=== PATIENT | male | born 1955 | race Caucasian/White ===

== ENCOUNTER 2020-09-24 17:54 | Inpatient (IN) | payer BC, MEDICARE ==
[~2020-09-24] VITALS: Ht 177.8 cm; Wt 98.7 kg
[2020-09-24] VITALS (70 sets, daily range): O2SAT 91–100
[~2020-09-24 17:54] MED LIST: ATORVASTATIN; ETOLDOLAC400 MG PO; INSULIN HUMALOG; INSULIN LANTUS; LIPITOR 40MG TA40 MG PO; LOTENSIN10 MG PO; NORCO 325 MG-7.1 TAB PO; PLAVIX 75MG TAB75 MG PO; WELCHOL 625MG625 MG PO; WELLBUTRIN SR150 M1 PO
[2020-09-24 18:33] LABS: HEMOGLOBIN 17.1 g/dl (13.5-18.0); MEAN CELL VOLUME 100 fl (80.0-100.0); MEAN CORPUSCULAR HEMOGLOBIN 32 pg (27.0-31.0); MEAN CORPUSCULAR HGB CONC 32 g/dl (33.0-37.0); MEAN PLATELET VOLUME 9.6 fl (7.4-10.4); PLATELET COUNT 525 K/mm3 (130-400); REDCELL DISTRIBUTION WIDTH-CV 12.6 % (11.5-14.5)
[2020-09-24 18:36] LABS: HEMATOCRIT 54.2 % (42.0-52.0)
[2020-09-24 18:40] LABS: ALBUMIN 5.4 gm/dL (3.5-5.0); BILIRUBIN,TOTAL 0.6 mg/dL (0.0-1.0); C-REACTIVE PROTEIN 0.9 mg/dL (0.0-0.9); CALCIUM 9.7 mg/dL (8.4-10.2); CREATININE, serum 1.65 (0.66-1.25); TOTAL PROTEIN 8.4 gm/dL (6.4-8.2)
[2020-09-24 18:43] LABS: POTASSIUM 6.1 mmol/L (3.4-5.0)
[2020-09-24 19:01] LABS: COLLECTION METHOD CLEAN CATCH
[2020-09-24 19:07] LABS: PH 5 (5-8); SQUAMOUS EPITHELIAL None Seen /hpf; URINE APPEARANCE Clear; URINE BACTERIA None Seen /hpf; URINE BILIRUBIN Negative (NEGATIVE); URINE BLOOD 1+ (NEGATIVE); URINE COLOR Straw; URINE GLUCOSE 3+ (NEGATIVE); URINE KETONE 2+ (NEGATIVE); URINE LEUKOCYTE ESTERASE Negative (NEGATIVE); URINE NITRATE Negative (NEGATIVE); URINE PROTEIN(semi-quant) 1+ (NEGATIVE); URINE RBC 0-2 /hpf; URINE UROBILINOGEN Negative (NEGATIVE)
[2020-09-24 19:19] LABS: BAND 1 % (0-10); HYPOCHROMIA 1+; LYMPHOCYTE 7 % (20.0-51.0); NEUTROPHILS 90 % (42.0-75.2); OVALOCYTES 1+; PLATELET ESTIMATE INCREASED (NORMAL)
[2020-09-24 19:32] LABS: ARTERIAL BLD GAS O2 SATURATION 97.5 % (92-100); ARTERIAL BLOOD GAS BASE EXCESS -26.8 (-2-2); ARTERIAL BLOOD GAS HCO3 3.6 meq/L (22-26); ARTERIAL BLOOD GAS PO2 115.8 mmHg (80-100); ARTERIAL BLOOD GAS pH 6.96 (7.35-7.45)
[2020-09-24 19:55] LABS: MAGNESIUM 2.7 mg/dL (1.6-2.3)
[2020-09-24 19:56] LABS: PHOSPHOROUS 11.4 mg/dL (2.5-4.5)
[2020-09-24] MEDS ORDERED: FARXIGA10 PO (20:13)
[2020-09-24] MEDS ORDERED: NOVOLOG FLEX100 U/ML SQ (20:15)
[2020-09-24] MEDS ORDERED: LEVEMIR100 U/ML SQ (20:15)
[2020-09-24] MEDS ORDERED: LOTENSIN20 MG PO (20:16)
[2020-09-24] MEDS ORDERED: NORVASC2.5 MG PO (20:16)
[2020-09-24] MEDS ORDERED: MOBIC15 MG PO (20:17)
[2020-09-24 20:51] LABS: BLOOD UREA NITROGEN 34 mg/dL (9-20); CHLORIDE 98 mmol/L (98-107); CREATININE, serum 1.62 (0.66-1.25); SODIUM 138 mmol/L (137-145)
[2020-09-24 21:00] LABS: GLUCOSE 495 mg/dL (74-106)
[2020-09-24 21:01] LABS: CARBON DIOXIDE < 5 mmol/L (22-30); POTASSIUM 5.8 mmol/L (3.4-5.0)
[2020-09-24 21:03] LABS: ANION GAP 0 mmol/L (7-16)
--- NOTE | 2020-09-24 21:48 | NUR ---
Pt arrived to ICU room 6 via cart at this time with ED nurse. Pt able to transfer from the cart to the ICU bed with standby assist. Pt oriented to room and call light system. Pt is sitting up in the bed and denies further needs. Call light within reach.
[2020-09-25] VITALS (660 sets, daily range): BP systolic 109–151; BP diastolic 45–87; PULSE 81–127; TEMP 98.4–99.2; O2SAT 82–100
[2020-09-25 00:52] LABS: CALCIUM 8.6 mg/dL (8.4-10.2); CREATININE, serum 1.36 (0.66-1.25)
[2020-09-25 00:57] LABS: POTASSIUM 5.8 mmol/L (3.4-5.0)
[2020-09-25 01:05] LABS: TROPONIN-I 6 HR POST INITIAL 0.062 ng/mL (0.000-0.034)
[2020-09-25 03:45] LABS: CALCIUM 8.7 mg/dL (8.4-10.2); CREATININE, serum 1.19 (0.66-1.25); POTASSIUM 4.7 mmol/L (3.4-5.0)
[2020-09-25 04:01] LABS: TROPONIN-I 0.32 ng/mL (0.000-0.035)
[2020-09-25 06:19] LABS: CALCIUM 8.5 mg/dL (8.4-10.2); CREATININE, serum 1.08 (0.66-1.25); POTASSIUM 4.4 mmol/L (3.4-5.0)
--- NOTE | 2020-09-25 07:00 | NUR ---
RECEIVED REPORT FROM GRACE DYKES. ASSUMED CARE OF PT AT THIS TIME.
[2020-09-25 07:58] LABS: CALCIUM 8.5 mg/dL (8.4-10.2); CREATININE, serum 0.99 (0.66-1.25); POTASSIUM 4.2 mmol/L (3.4-5.0)
--- NOTE | 2020-09-25 09:51 | NUR ---
NOEL met with the patient to discuss discharge plan. The patient lives [facility] with his , Pati (ph#[phone]). He reports independence with ADLs and has a cane. The patient's PCP is Dr. Balaji Mitchell and he receives his medications from [facility]. He reports no difficulties obtaining his meds. The patient does not have a DPOA-HC, but he was interested in obtaining a form. NOEL provided. The patient plans to return home with his upon discharge. NOEL contacted and reviewed the d/c plan with the patient's , Pati. Pati has no concerns with the patient returning back home upon discharge. No additional needs at this time.
[2020-09-25 10:20] LABS: CALCIUM 8.2 mg/dL (8.4-10.2); CREATININE, serum 0.87 (0.66-1.25); POTASSIUM 4.1 mmol/L (3.4-5.0)
[2020-09-25 10:22] LABS: HEMATOCRIT 46.4 % (42.0-52.0); MEAN CELL VOLUME 97 fl (80.0-100.0); MEAN CORPUSCULAR HGB CONC 33 g/dl (33.0-37.0); MEAN PLATELET VOLUME 9.6 fl (7.4-10.4); RED BLOOD COUNT 4.77 M/mm3 (4.20-5.60)
[2020-09-25 10:23] LABS: MEAN CORPUSCULAR HEMOGLOBIN 32 pg (27.0-31.0)
[2020-09-25 10:25] LABS: PLATELET COUNT 367 K/mm3 (130-400)
[2020-09-25 10:26] LABS: HEMOGLOBIN 15.1 g/dl (13.5-18.0)
[2020-09-25 10:39] LABS: TROPONIN-I 1.28 ng/mL (0.000-0.035)
--- NOTE | 2020-09-25 10:42 | NUR ---
NOTIFIED DR. GIBBS OF PT'S TROPONIN LEVEL OF 1.280.
[2020-09-25 11:05] LABS: BAND 7 % (0-10); LYMPHOCYTE 16 % (20.0-51.0); NEUTROPHILS 58 % (42.0-75.2); PLATELET ESTIMATE NORMAL (NORMAL); TOXIC GRANULATION PRESENT
--- NOTE | 2020-09-25 12:35 | NUR ---
SEE MERGE DOCUMENTATION FOR MEDICATION ADMINISTRATION TIMES AND INTRA/POST PROCEDURE SEDATION ASSESSMENTS. RIGHT HAND BARBEAU TEST POSITIVE.
--- NOTE | 2020-09-25 13:23 | NUR ---
PT RETURN FROM DIRECTOR BUSINESS INTEGRATION AT THIS TIME. RECEIVED REPORT FROM SUSAN AT THIS TIME. PT ALERT/ORIENTED X3. RADIAL AND PEDAL PULSES INTACT. TR BAND TO RIGHT RADIAL INTACT. NO BLEEDING NOTED. PT REMAINS IN SUPINE POSITION.
[2020-09-25 16:15] LABS: CALCIUM 8.1 mg/dL (8.4-10.2); CREATININE, serum 0.89 (0.66-1.25)
--- NOTE | 2020-09-25 16:15 | NUR ---
Notified Dr. Stevens of pt's troponin level of 0.980.
[2020-09-25 16:29] LABS: TROPONIN-I 0.98 ng/mL (0.000-0.035)
--- NOTE | 2020-09-25 17:30 | NUR ---
SLIGHT BLEEDING NOTED TO RIGHT RADIAL SITE. RETURNED 2ML AIR TO TR BAND. TOTAL AIR VOLUME 5ML AT THIS TIME. TOTAL OF 4ML HAS BEEN REMOVED. BLEEDING NOW STOPPED AT THIS TIME.
--- NOTE | 2020-09-25 17:47 | NUR ---
PT'S DAUGHTER BAN GIVEN UPDATE ON PT STATUS.
--- NOTE | 2020-09-25 21:00 | NUR ---
Alert and oriented and resting in bed. Radial site scant drainage; non-tender, and no hematoma present. Remaining air removed from TR band at this time. Reporting right shoulder pain. Reports this pain is chronic. Requesting to take Tylenol at this time. No other concerns or complaints at this time; will continue to monitor.
[2020-09-26] VITALS (648 sets, daily range): BP systolic 126–165; BP diastolic 65–75; PULSE 68–101; TEMP 97.5–98.6; O2SAT 91–100
--- NOTE | 2020-09-26 05:10 | NUR ---
Awake and watchin TV; Reports feels "good" this morning. No concerns or complaints at this time.
[2020-09-26 05:47] LABS: BASO % 0.3 % (0.0-2.0); EOS % 0.1 % (0-4.0); GRAN # 9.2 (1.4-6.5); GRAN % 69.1 % (42.2-75.2); HEMATOCRIT 43.8 % (42.0-52.0); HEMOGLOBIN 14.6 g/dl (13.5-18.0); LYMPH # 2.6 (1.2-3.4); LYMPH % 19.6 % (20.0-51.0); MEAN CELL VOLUME 95 fl (80.0-100.0); MEAN CORPUSCULAR HEMOGLOBIN 32 pg (27.0-31.0); MEAN CORPUSCULAR HGB CONC 33 g/dl (33.0-37.0); MEAN PLATELET VOLUME 9.2 fl (7.4-10.4); MONO # 1.4 (0.1-0.6); MONO % 10.3 % (1.7-9.3); RED BLOOD COUNT 4.62 M/mm3 (4.20-5.60); REDCELL DISTRIBUTION WIDTH-CV 13.2 % (11.5-14.5)
[2020-09-26 05:52] LABS: PLATELET COUNT 262 K/mm3 (130-400)
[2020-09-26 06:00] LABS: CALCIUM 8.4 mg/dL (8.4-10.2); CREATININE, serum 0.69 (0.66-1.25); POTASSIUM 4.1 mmol/L (3.4-5.0)
--- NOTE | 2020-09-26 08:39 | NUR ---
Asssesment completed, vital signs stable, denies any chest pain or discomfort, chronic shoulder pain continues, heart RRR/ SR on tele rate 80's, distal pulses are palpable, lungs CTA/ no resp.difficulty noted, right radial puncture site looks good / bandaid C/d/I with no signs of bleeding or impaired circulation, good cap refill, he is eating breakfast but reports throat irritation from vomitting the other day, denies other needs at this time
--- NOTE | 2020-09-26 20:00 | NUR ---
Report received, assumed care for night warehouse manager. Assessment complete. A&Ox3. Denies pain/nausea/shortness of breath. Tolerating PO. Dressing to right and left radial cath sites CDI. Tele reporting SR. INT to left AC flushes without difficulty. Plan of care discussed for this shift include HS meds/pain meds/bedside glucose/calling for questions/concerns. Verbalizes understanding/denies questions/concerns. Call light in reach. Will monitor.
[2020-09-27] VITALS (7 sets, daily range): BP systolic 127–165; BP diastolic 60–82; PULSE 79–109; TEMP 97.3–98.2
--- NOTE | 2020-09-27 | NUR ---
Called with c/o pain to right shoulder-described as constant throbbing-rating pain 6/10 on pain scale. Brusly given per dr vieira. Will monitor.
--- NOTE | 2020-09-27 01:14 | NUR ---
Resting eyes closed. No s/s of pain noted.
--- NOTE | 2020-09-27 03:25 | NUR ---
Call from ict help desk technician stating patient went into variable A flutter-up ambulating in hallway. Currently is asymptomatic. Did ambulate approx 1000 feet.
--- NOTE | 2020-09-27 04:19 | NUR ---
Call from tele due to increase in heart rate-patient up to bathroom and doing oral care. HR up to 140s and still in A flutter. Asymptomatic-VS stable. Denies chest pain/nausea/shortness of breath. GIL Campa notified. No new orders received. Will continue to monitor.
--- NOTE | 2020-09-27 04:30 | NUR ---
Currently in A flutter-rate 70s. Sitting up in chair watching TV
--- NOTE | 2020-09-27 06:07 | NUR ---
Call from telegraph installer of increased heart rate in the 140s. Up to bathroom at this time. Asymptomatic. Back to bed independently.
[2020-09-27 06:36] LABS: BASO % 0.5 % (0.0-2.0); EOS # 0.1 (0.0-0.7); EOS % 0.9 % (0-4.0); GRAN % 62.6 % (42.2-75.2); HEMATOCRIT 44.3 % (42.0-52.0); HEMOGLOBIN 14.9 g/dl (13.5-18.0); LYMPH # 1.8 (1.2-3.4); MEAN CELL VOLUME 93 fl (80.0-100.0); MEAN CORPUSCULAR HEMOGLOBIN 31 pg (27.0-31.0); MEAN CORPUSCULAR HGB CONC 34 g/dl (33.0-37.0); MEAN PLATELET VOLUME 9.2 fl (7.4-10.4); MONO % 12.7 % (1.7-9.3); PLATELET COUNT 274 K/mm3 (130-400); RED BLOOD COUNT 4.75 M/mm3 (4.20-5.60); REDCELL DISTRIBUTION WIDTH-CV 12.8 % (11.5-14.5)
[2020-09-27 06:42] LABS: ALBUMIN 3.7 gm/dL (3.5-5.0); BILIRUBIN,TOTAL 1.3 mg/dL (0.0-1.0); CALCIUM 8.4 mg/dL (8.4-10.2); CREATININE, serum 0.55 (0.66-1.25); POTASSIUM 3.1 mmol/L (3.4-5.0); TOTAL PROTEIN 6.5 gm/dL (6.4-8.2)
--- NOTE | 2020-09-27 08:06 | NUR ---
Patient sitting up in chair. Alert & oriented. Complaints of a sore throat & chronic shoulder pain. Flomot per request. He is tolerating diet. Insulin per orders. K+ replacement per orders, Called Rosanna for orders. Will monitor.
--- NOTE | 2020-09-27 09:12 | NUR ---
Hospitalist Tova Fuchs rounded. Patient made NPO. Ekg to be completed. RT notified.
--- NOTE | 2020-09-27 10:45 | NUR ---
Patient given first dose of new medications ordered by cardiology, education provided. Patietn understanding, will monitor vitals closely.
--- NOTE | 2020-09-27 11:05 | NUR ---
Goat Herder met with the patient to review the discharge plan. The patient is independent and plans on returning home when he is medically cleared to do so.
[2020-09-27] MEDS ORDERED: TOPROL XL 50MG50 MG PO (11:22)
[2020-09-27] MEDS ORDERED: TAMBOCOR50 MG PO (11:22)
[2020-09-27] MEDS ORDERED: ELIQUIS 5MG PO (11:23)
[2020-09-27] MEDS ORDERED: K-DUR20 MEQ PO (11:25)
--- NOTE | 2020-09-27 14:47 | NUR ---
Patient continues to do well. Vss. He has been up ambulating halls without problems. Tele on. update given to Janina his daughter.
--- NOTE | 2020-09-27 17:50 | NUR ---
Patient sitting up wanting dinner. He showered. Vitals remains stable. Tele on. [place] manages chronic shoulder pain.
--- NOTE | 2020-09-27 20:30 | NUR ---
Pt. sitting up in chair at this time. Pt. is A&OX3, assessment complete. INT to lt. forearm patent. Pt. denies pain or other needs at this time. Call light within reach.
[2020-09-28 03:58] VITALS: BP 135/73; PULSE 73; TEMP 98.1
[2020-09-28 07:57] LABS: BASO % 0.6 % (0.0-2.0); EOS # 0.2 (0.0-0.7); EOS % 3.3 % (0-4.0); GRAN # 3.8 (1.4-6.5); GRAN % 55.2 % (42.2-75.2); HEMATOCRIT 43.8 % (42.0-52.0); HEMOGLOBIN 14.6 g/dl (13.5-18.0); LYMPH # 1.8 (1.2-3.4); LYMPH % 26.3 % (20.0-51.0); MEAN CELL VOLUME 94 fl (80.0-100.0); MEAN CORPUSCULAR HEMOGLOBIN 31 pg (27.0-31.0); MEAN CORPUSCULAR HGB CONC 33 g/dl (33.0-37.0); MEAN PLATELET VOLUME 9.5 fl (7.4-10.4); MONO % 14.3 % (1.7-9.3); PLATELET COUNT 260 K/mm3 (130-400); RED BLOOD COUNT 4.68 M/mm3 (4.20-5.60); REDCELL DISTRIBUTION WIDTH-CV 12.3 % (11.5-14.5)
--- NOTE | 2020-09-28 08:00 | NUR ---
Patient has been up ambulating in halls independently with steady gait. Alert and oriented x 3. Assessment complete. Denies pain at this time. Insulin not given due to BS of 86. Patient ordering breakfast. Denies further needs at this time.
[2020-09-28 08:03] LABS: CALCIUM 8.8 mg/dL (8.4-10.2); CREATININE, serum 0.54 (0.66-1.25); POTASSIUM 3.8 mmol/L (3.4-5.0)
[2020-09-28 08:11] VITALS: BP 133/77; PULSE 74; TEMP 98.1
--- NOTE | 2020-09-28 09:32 | NUR ---
Initial visit; Patient thanked Fertilizing Machine Operator for looking in on him and offering God's blessings.
--- NOTE | 2020-09-28 11:10 | NUR ---
Discharge education provided to patient. Educated on when to call provider and follow up appoitments. Educated on all new medications and medication changes. All questions answered. Patient re-educated on home insulin and checking blood sugar at home. Denies further needs at this time. Patient ambulated out with surgical staff. INT discontinued, catheter tip intact.
== END 2020-09-28 11:10 | disposition home or self-care (01) | DRG 637 ==
LOC: COL.ER 17:54 → SURG 19:28 → ICU 19:28 → SURG 09-26 18:39
PROVIDERS: Nurse Practitioner Family; Nurse Practitioner Primary Care; Physician Assistant; Student in an Organized Health Care Education/Training Program; ADMIT Internal Medicine
PROC: 4A023N8 Measurement of Cardiac Sampling and Pressure, Bilateral, Percutaneous Approach (ICD-10-PCS; principal; 2020-09-25)
DX: E11.10 Type 2 diabetes mellitus with ketoacidosis without coma (principal); I21.A1 Myocardial infarction type 2; N17.9 Acute kidney failure, unspecified; E87.2 Acidosis; I48.92 Unspecified atrial flutter; I47.1 Supraventricular tachycardia; M25.511 Pain in right shoulder; E87.5 Hyperkalemia; E87.6 Hypokalemia; D72.829 Elevated white blood cell count, unspecified; E11.9 Type 2 diabetes mellitus without complications; Z20.828 Contact with and (suspected) exposure to other viral communicable diseases; E78.5 Hyperlipidemia, unspecified; F32.9 Major depressive disorder, single episode, unspecified; I44.7 Left bundle-branch block, unspecified; Z86.73 Personal history of transient ischemic attack (TIA), and cerebral infarction without residual deficits; Z87.01 Personal history of pneumonia (recurrent); Z79.4 Long term (current) use of insulin
CPT/HCPCS: 99223-AI; 99232-AI; 99233-AI; 99239; J0153; J0610; J0696; J1170; J1644; J1650; J1815; J2250; J2405; J2550; J3010; J7030; Q9967